=== PATIENT | female | born 1975 | race Caucasian/White ===

== ENCOUNTER 2016-12-31 10:12 | Emergency (ER) | payer OTHER ==
[~2016-12-31] VITALS: Ht 157.5 cm; Wt 77.0 kg
[~2016-12-31 10:12] MED LIST: LORA-441 PO
[2016-12-31 10:22] VITALS: Ht 157.5 cm; Wt 77.0 kg
[2016-12-31] MEDS ORDERED: IBUP400T22 PO (10:48)
--- NOTE | 2016-12-31 10:53 | ERA ---
ER Documentation Chief Complaint Date/Time DATE: 12/31/16 TIME: 10:50 Chief Complaint right jaw pain , tongue pain HPI This is an otherwise healthy 41-year-old female presenting with a chief complaint of 2 days of pain on the right side of the tongue. Patient woke up with the sore. Drinking hot coffee made the sore worse. Patient has not had symptoms like this before. Patient denies any past medical history. Patient does has have a history of TMJ. Patient says that this does not feel like it is in her job but on the side of her tongue. Denies any difficulty breathing or swallowing. Was seen at PCP who could not diagnose and suggested following up with the hospital for further evaluation. No other symptoms are described as well as no other associated manifestations. No recent travel and vaccination status up-to-date. Nursing notes have been reviewed and are consistent with history given. ROS All systems reviewed and are negative except as per history of present illness. Medications Home Meds Active Scripts Ibuprofen* (Motrin*) 400 Mg Tab, 400 MG PO Q6H Y for PAIN AND OR ELEVATED TEMP, #30 TAB Prov:SAMARA PAEZ PA-C 12/31/16 Lorazepam* (Ativan*) 0.5 Mg Tablet, 0.5 MG PO Q8, #10 Prov:MICHAEL ESPINAL PA-C 02/26/15 Allergies Allergies: Coded Allergies: No Known Allergy (Unverified , 12/31/16) PMhx/Soc History of Surgery: No Anesthesia Reaction: No Hx Neurological Disorder: No Hx Respiratory Disorders: Yes (POSITIVE TB SKIN TEST, NEG CXR) Hx Cardiac Disorders: No Hx Psychiatric Problems: No Hx Miscellaneous Medical Probl: No Hx Alcohol Use: No Hx Substance Use: No Hx Tobacco Use: No Smoking Status: Never smoker Physical Exam Vitals Vital Signs Date Time Temp Pulse Resp B/P Pulse Ox O2 Delivery O2 Flow Rate FiO2 12/31/16 10:22 98.1 71 18 106/65 99 Physical Exam Const: Overweight 41-year-old female in no acute distress Head: Atraumatic Eyes: Normal Conjunctiva ENT: Normal external ears and nose. Mouth showed 2 mm appropriately healing laceration on the right side of the tongue. Neck: Full range of motion..~ No meningismus. Resp: Clear to auscultation bilaterally Cardio: Regular rate and rhythm, no murmurs Abd: Soft, non tender, non distended. Normal bowel sounds Skin: No petechiae or rashes Back: No midline or flank tenderness Ext: No cyanosis, or edema Neur: Awake and alert Psych: Normal Mood and Affect Procedures/MDM 41-year-old female presenting with signs and symptoms most consistent with tongue laceration sustained when she was asleep. At this time of little suspicion for airway compromising pathologies. Patient will be given ibuprofen for discomfort and swelling and be discharged at this time with discharge instructions and return precautions. Patient has verbalized that she understands the plan of management. Departure Diagnosis: Primary Impression: Mouth sore Condition: Stable Patient Instructions: When Your Child Has Mouth Sores Additional Instructions: Follow up with your PCP within the next 1-3 days for a more thorough evaluation and a possible referral to a specialist. Return the the emergency department immediately if symptoms worsen or change. If you have any questions regarding medications, ask your pharmacist or us before you leave. If any adverse reactions occur while taking your medications, discontinue the treatment and return to the emergency department immediately. Take your medications as directed, and complete the entire course of treatment. SAMARA PAEZ PA-C Dec 31, 2016 10:53
== END 2016-12-31 10:55 | disposition home or self-care (01) ==
LOC: FTE 10:12
DX: K13.79 Other lesions of oral mucosa (principal)
CPT/HCPCS: 99283

== ENCOUNTER 2017-09-04 08:37 | Emergency (ER) | END 2017-09-04 10:08 | disposition home or self-care (01) ==

== ENCOUNTER 2019-01-09 18:37 | Emergency (ER) | payer OTHER ==
[~2019-01-09] VITALS: Ht 160 cm; Wt 71.0 kg
[~2019-01-09 18:37] MED LIST changes: +IBUP-1542 PO; +IBUP-1561 PO
[2019-01-09 18:55] VITALS: BP 169/68; PULSE 85; RESP 20; Ht 160 cm; Wt 71.0 kg
[2019-01-09] MEDS ORDERED: LIDOCAINE/MYLANTA 40 ML BTL PO STA (20:18)
[2019-01-09] MEDS ORDERED: FAMOTIDINE 20 MG TAB PO STA (20:18)
[2019-01-09] MEDS ORDERED: DICYCLOMINE 10 MG CAP PO ONE (20:30)
--- NOTE | 2019-01-09 20:38 | ERD ---
ER Documentation Chief Complaint Chief Complaint INTERMITTENT UPPER ABDOMINAL PAIN RADIATING TOWARD BACK STARTING TODAY HPI 43-year-old female who presents to the emergency room complaining of abdominal pain. The abdominal pain started today when she was having a verbal altercation with 1 of her coworkers. She started to have periumbilical and epigastric abdominal cramping that is radiating around to her back and diffusely to the abdomen. Pain is 7 out of 10 currently. One episode of nausea with nonbloody nonbilious emesis. No diarrhea. Symptoms slowly improved. Patient still anxious. She denied any chest pain or diaphoresis or exertional symptoms. Patient denies any postprandial symptoms. She has a history of occasional episodes of burning epigastric abdominal pain with eating. Translation services were utilized during this patient's encounter Language: Hungarian Source: In person ROS All systems reviewed and are negative except as per history of present illness. Medications Home Meds Active Scripts Dicyclomine HCl (Dicyclomine HCl) 10 Mg Capsule, 10 MG PO TID PRN for ABDOMINAL CRAMPING, #20 CAP Prov:JONATHAN JAIN MD 01/09/19 Famotidine* (Pepcid*) 20 Mg Tablet, 20 MG PO BID PRN for epigastric abdominal pain for 4 Days, TAB Prov:JONATHAN JAIN MD 01/09/19 Ibuprofen* (Motrin*) 600 Mg Tab, 600 MG PO Q6, #30 TAB Prov:JOSE GUADALUPE GILLIAM PA-C 09/04/17 Ibuprofen* (Motrin*) 400 Mg Tab, 400 MG PO Q6H PRN for PAIN AND OR ELEVATED TEMP, #30 TAB Prov:SAMARA PAEZ PA-C 12/31/16 Lorazepam* (Ativan*) 0.5 Mg Tablet, 0.5 MG PO Q8, #10 Prov:MICHAEL ESPINAL PA-C 02/26/15 Allergies Allergies: Coded Allergies: No Known Allergy (Unverified , 09/04/17) PMhx/Soc Medical and Surgical Hx: pt denies Medical Hx, pt denies Surgical Hx History of Surgery: No Anesthesia Reaction: No Hx Neurological Disorder: No Hx Respiratory Disorders: Yes (POSITIVE TB SKIN TEST, NEG CXR) Hx Cardiac Disorders: No Hx Psychiatric Problems: No Hx Miscellaneous Medical Probl: No Hx Alcohol Use: No Hx Substance Use: No Hx Tobacco Use: No Smoking Status: Never smoker FmHx Family History: No diabetes Physical Exam Vitals Vital Signs Date Temp Pulse Resp B/P (MAP) Pulse Ox O2 O2 Flow FiO2 Time Delivery Rate 01/09/19 99.1 85 20 169/68 98 18:55 (101) Physical Exam General: Well developed, well nourished, no acute distress Head: Normocephalic, atraumatic. Eyes: Pupils equally reactive, EOM intact ENT: Moist mucous membranes Neck: Supple, no lymphadenopathy Respiratory: Lungs clear bilaterally, no distress Cardiovascular: RRR, no murmurs, rubs, or gallops Abdominal: Soft, mild epigastric abdominal tenderness, no tenderness to McBurney's point, negative Fong sign. No pulsatile mass. : Deferred MSK: No edema, no unilateral swelling, 5/5 strength Neurologic: Alert and oriented, moving all extremities, normal speech, no focal weakness, no cerebellar signs Skin: No rash Psych: Normal mood Result Diagram: 01/09/19202401/09/192024 Results 24 hrs Laboratory Tests Test 01/09/19 20:25 01/09/19 20:33 White Blood Count 9.9 10^3/ul Red Blood Count 3.76 10^6/ul Hemoglobin 12.0 g/dl Hematocrit 35.3 % Mean Corpuscular Volume 93.9 fl Mean Corpuscular Hemoglobin 31.9 pg Mean Corpuscular Hemoglobin Concent 34.0 g/dl Red Cell Distribution Width 13.6 % Platelet Count 321 10^3/UL Mean Platelet Volume 9.6 fl Immature Granulocytes % 0.300 % Neutrophils % 79.0 % Lymphocytes % 14.1 % Monocytes % 5.8 % Eosinophils % 0.3 % Basophils % 0.5 % Nucleated Red Blood Cells % 0.0 /100WBC Immature Granulocytes # 0.030 10^3/ul Neutrophils # 7.8 10^3/ul Lymphocytes # 1.4 10^3/ul Monocytes # 0.6 10^3/ul Eosinophils # 0.0 10^3/ul Basophils # 0.1 10^3/ul Nucleated Red Blood Cells # 0.0 10^3/ul Sodium Level 144 mmol/L Potassium Level 3.5 mmol/L Chloride Level 112 mmol/L Carbon Dioxide Level 23 mmol/L Anion Gap 9 Blood Urea Nitrogen 20 mg/dl Creatinine 0.51 mg/dl Est Glomerular Filtrat Rate mL/min > 60 mL/min Glucose Level 154 mg/dl Calcium Level 9.0 mg/dl Total Bilirubin 0.5 mg/dl Direct Bilirubin 0.00 mg/dl Indirect Bilirubin 0.5 mg/dl Aspartate Amino Transf (AST/SGOT) 20 IU/L Alanine Aminotransferase (ALT/SGPT) 16 IU/L Alkaline Phosphatase 61 IU/L Total Protein 7.3 g/dl Albumin 3.9 g/dl Globulin 3.40 g/dl Albumin/Globulin Ratio 1.14 Lipase 84 U/L POC Beta HCG, Qualitative NEGATIVE Current Medications Medications Dose Sig/Sajan Start Time Status Last (Trade) Ordered Route PRN Stop Time Admin Dose Reason Admin Famotidine 20 mg ONCE STAT 01/09/19 DC 01/09/19 (Pepcid) PO 20:18 20:30 01/09/19 20:20 40 ml ONCE STAT 01/09/19 DC 01/09/19 Miscellaneous PO 20:18 20:30 Medication 01/09/19 20:20 (Gi Cocktail (2)) Dicyclomine 20 mg ONCE ONCE 01/09/19 DC 01/09/19 HCl PO 20:30 20:30 (Bentyl) 01/09/19 20:31 Procedures/MDM LAB INTERPRETATION: I reviewed the laboratory testing and it shows no evidence of acute process MEDICAL DECISION MAKING: Patient has abdominal cramping in the setting of verbal altercation. She has a benign abdominal exam other than mild epigastric abdominal tenderness. She has no exertional symptoms or chest pain or anginal equivalent to suggest acute coronary syndrome. Possible anxiety related. Consider possible dyspepsia or peptic ulcer disease as well. Low clinical concern for hepatobiliary process or acute cholecystitis. Again, patient is well-appearing with stable vital signs with a benign abdominal examination. No indication for diagnostic imaging at this time. Patient will benefit from symptom control, screening with basic blood work and abdominal labs. ER COURSE: * GI cocktail given * Patient symptoms are improving. Her laboratory testing shows no evidence of acute process or amenable obstruction. * At this point the patient can be safely discharged home CONSULTATION: None DISPOSITION PLAN: The patient does not have an identifiable emergent medical condition that warrants inpatient hospitalization at this time. The patient is deemed safe for discharge with outpatient follow-up. We discussed follow up with the patient's primary care doctor within 24 to 48 hours as needed. We also discussed return to the emergency room for worsening symptoms or worsening condition. Outpatient referral: None required Discharge Medications: Adriana Matthews Diagnosis: Primary Impression: Epigastric abdominal pain Condition: Stable JONATHAN JAIN MD Jan 09, 2019 20:38
[2019-01-09] MEDS ORDERED: DICY10CA40 PO (20:58)
[2019-01-09] MEDS ORDERED: FAMO-96 PO (20:58)
== END 2019-01-09 21:17 | disposition home or self-care (01) ==
LOC: E/R 18:37
DX: R10.13 Epigastric pain (principal)
CPT/HCPCS: 80053; 81025; 83690; 85025; Z7610; 36415; 99283